=== PATIENT | male | born 2000 | race Caucasian/White ===

== ENCOUNTER → 2024-02-11 | Outpatient (CLI) | payer BC, OTHER ==
--- NOTE | 2024-02-11 11:05 | US ---
EXAMINATION TYPE: US gallbladder DATE OF EXAM: 02/11/2024 COMPARISON: NONE CLINICAL INDICATION: Male, 23 years old with history of K81.0 ACUTE CHOLECYSTITIS; Pain TECHNIQUE: Multiple sonographic images of the right upper quadrant are obtained. FINDINGS: EXAM MEASUREMENTS: Liver Length: 13.4 cm Gallbladder Wall: .2 cm CBD: .4 cm Right Kidney: 10.3 x 4.7 x 4.3 cm Pancreas: Obscured by bowel gas Liver: wnl Gallbladder: No stones seen Evidence for sonographic Yost's sign: No CBD: wnl Right Kidney: No hydronephrosis or masses seen IMPRESSION: Suboptimal visualization of the pancreas. Otherwise, unremarkable sonographic examination of the righ t upper quadrant. No gallstones or biliary ductal dilatation.
== END | disposition home or self-care (01) ==
LOC: RADUSWWP 07:10
PROVIDERS: ATTEND Family Medicine
DX: K81.0 Acute cholecystitis (principal)
CPT/HCPCS: 76705

== ENCOUNTER → 2024-12-06 | Outpatient (CLI) | payer BC ==
--- NOTE | 2024-12-06 16:29 | CT ---
EXAMINATION TYPE: CT brain w con DATE OF EXAM: 12/06/2024 COMPARISON: None CLINICAL INDICATION: Male, 24 years old with history of R55,R51 HEADACHE WITH ORTHOSTATIC COMPONENT, NEC; PHH, sudden onset longlasting headaches, lasted 6 weeks. TECHNIQUE: CT of the brain is performed with IV Contrast, patient injected with 100 ml mL of Isovue 300. CT DLP: 1001.9 mGycm Automated exposure control for dose reduction was used. FINDINGS: There is no abnormal enhancing mass or midline shift identified. The ventricles and sulci are within normal limits in size. No extra-axial fluid collection is seen. No effacement of cerebral sulci and subarachnoid cisterns. Dural venous sinuses are patent. The globes are intact and the visualized sinuses are clear. Mastoid air cells well pneumatized. IMPRESSION: Negative contrast enhanced head CT exam. [facility], , 12/06/2024 4:26 PM
== END | disposition home or self-care (01) ==
LOC: RADCTMAIN 15:31
PROVIDERS: ATTEND Family Medicine
DX: R55 Syncope and collapse (principal); R51.0 Headache with orthostatic component, not elsewhere classified
CPT/HCPCS: 70460; Q9967